=== PATIENT | female | born 1955 | race Caucasian/White ===

== ENCOUNTER 2016-10-01 19:26 | Inpatient (IN) ==
[2016-10-01] MEDS ORDERED: SODIUM CHLORIDE 0.9% 1,000 ML IV STA ×2 (19:57→22:45)
[2016-10-01] MEDS ORDERED: PANTOPRAZOLE 40 MG VIAL IV STA (19:57)
[2016-10-01] MEDS ORDERED: ONDANSETRON 4 MG/2 ML VIAL IV STA (19:57)
[2016-10-01] MEDS ORDERED: PANTOPRAZOLE 40 MG VIAL IV ONE (20:24)
[2016-10-01] MEDS ORDERED: ONDANSETRON 4 MG/2 ML VIAL ONE (20:24)
[2016-10-01 20:27] LABS: Basophils # 0.1 10*3/uL (0.0-0.2); Basophils % 0.6 % (0.0-0.8); Eosinophils # 0.1 10*3/uL (0.0-0.87); Eosinophils % 0.7 % (0.00-10.9); Hematocrit 48.9 VOL% (35.7-47.0); Immature Granulocytes Absolute 0.12 #; Lymphocytes # 2.8 10*3/uL (1.4-4.0); Mean Corpuscular HGB Conc 30.7 GM/DL (32-36); Mean Corpuscular Hemoglobin 28 PG (27-34); Mean Corpuscular Volume 91.6 FL (87-102); Mean Platelet Volume 10.2 FL (9.6-12.0); Monocytes # 0.8 10*3/uL (0.11-0.8); Monocytes % 6.2 % (1.7-12.7); Neutrophils # 8.4 10*3/uL (1.4-7.4); Neutrophils % 68.5 % (38.7-73.9); Platelet Count 294 T/CUMM (130-400); Red Blood Count 5.34 MC/CUMM (3.8-5.5); Red Cell Distribution Width 14.7 % (9.3-17.3); White Blood Count 12.3 T/CUMM (4-12)
[2016-10-01 20:51] LABS: Alanine Aminotransferase 15 U/L (13-56); Albumin 4.2 G/DL (3.4-5.0); Alkaline Phosphatase 66 U/L (45-117); Amylase 40 U/L (25-115); Aspartate Amino Transferase 12 U/L (0-37); Blood Urea Nitrogen 20 MG/DL (7-18); Calcium 9.9 MG/DL (8.5-10.1); Glucose 237 MG/DL (74-106); Magnesium 2.1 MG/DL (1.8-2.4); Osmolality,Calculated 280.1 MOS/KG (273-304); Potassium 4.1 MMOL/L (3.5-5.1); Sodium 135 MMOL/L (136-145); Total Protein 7.9 G/DL (6.4-8.3); Troponin I Only < 0.015 NG/ML (0.00-0.045)
--- NOTE | 2016-10-01 21:04 | EKG Report ---
Stationary ECG Study [facility] ER Test Date: 10/01/2016 9:03:21 PM Pat Name: CAESAR SEYMOUR Department: Room: Gender: F Executive Sales Manager: DAYNE : 1955 Requested by: Fortino Mcintosh Order Number: [id number] Reading MD: RAHDA BRAND Intervals [place] Rate: 106 P: 62 RI: 176 QRS: -9 QRSD: 156 T: 128 QT: 373 QTc: 435 Interpretive Statements SINUS TACHYCARDIA INTRAVENTRICULAR CONDUCTION DELAY Electronically Signed On 10-04-16 10:38:24 CDT by RADHA BRAND [email or web address]
--- NOTE | 2016-10-01 21:05 | CT Report ---
History: Nausea. Weakness. Confusion. Dizziness Date: 10/01/2016 Study: CT head without contrast Comparison exam: No previous similar study for comparison Transaxial CT sections were obtained through the head without IV contrast. This CT exam was performed using one or more the following dose reduction techniques: Automated exposure control, adjustment of the MA and/or KV according to patient size, or use of iterative reconstruction technique. The ventricles are midline in position without evidence of hydrocephalus. There is no mass or parenchymal hemorrhage. There is no gross CT evidence of acute cortical stroke. There is ill-defined low density in the periventricular white matter without mass effect compatible with changes of small vessel disease. There is no extra-axial hematoma. There is no acute abnormality of the calvarium. The partially visualized paranasal sinuses and mastoid air cells are clear. Impression: No acute intracranial process PROCEDURE INTERPRETED AT [facility] DEPARTMENT OF RADIOLOGY Final Report Signed by: Dr. Elif Mcwilliams
--- NOTE | 2016-10-01 21:15 | Emergency Department Note ---
IShira Sierra, am scribing for, and in the presence of, Fortino Price MD 20:19. Dee Gallego Charles R, MD, personally performed the services described in this documentation, ascribed by Alie Silva in my presence, and it is both accurate and complete . Arrival - Arrival Chief Complaint: Weakness Stated Complaint: weakness,dizzy,cant hold head up, possible stroke/ ED Nursing Triage Note: C/O Generalized weakness/dizziness/not feeling well. Onset Saturday. Pt reports that she started a low cab/high protein diet on Saturday and a couple of days later the symptoms started. +nausea/vomiting that started yesterday. Denies urinary symptoms. Pt reports adequate hydration. Daughter reports that she notices that isn't thinking as clear as she normally does. Mode of Arrival: Wheelchair Limitations: No Limitations Source: Patient, Family Time Seen by Provider: 10/01/16 19:43 - History of Present Illness HPI Narrative: Pt is a 61 y/o female that came to the ED with c/o weakness that began 4 days ago. Pt has associated sxs of N/V, decreased appetite, "talking out of her head, " confused, dizziness, and decreased urine output but denies CP, SOB, fever, fullness in abdomen, numbness to face, muscle pain, constipation, or SOB. Pt denies being dizzy when sitting up but is when she tries to walk. Daughter states she had to make pt come to the ED. Daughter reports this is not normal behavior for pt. Daughter states pt started a new low carbohydrate and high protein diet 6 days ago and sxs came on soon after. Pt reports she has been sleeping more than normal and notices something is wrong due to not eating like normal. Daughter states pt is DM and her blood sugar was 192 this morning. Daughter reports pt's blood sugar does run higher when pt is sick. Pt admits she has been taking OTC pain medication such as BC powders, Aleve, and Tylenol for sxs, and daughter states pt does not normally take OTC medications. No other complaints/pain in ED. Onset (ago): day(s) Consistency: constant Severity: moderate Severity scale (1-10): 5 Quality: other Date of Last Menstrual Period: PM Allergies/Adverse Reactions: Allergies Allergy/AdvReac Type Severity Reaction Status Date / Time No Known Allergies Allergy Verified 10/01/16 19:32 Home Medications: Home Medications Medication Instructions Recorded Confirmed Type Unable To Obtain [Unable to Obtain] 10/01/16 10/01/16 History Review of System - Review of System 12 point system: reviewed and no additional remarkable complaints except as stated - Review of System Constitutional: Present: weakness, other (decreased appetite; dizziness). Absent: fever Respiratory: Absent: cough Cardiovascular: Absent: chest pain Gastrointestinal: Present: nausea, vomiting, constipation. Absent: abdominal pain Genitourinary female: Present: other (decreased urine output) Musculoskeletal: Absent: arm pain, leg pain, neck pain Skin: Absent: rash Neurological: Present: confusion, other ("talking out of her head"). Absent: headache, numbness Psychiatric: Absent: anxiety Medical,Surgical,& Family Hx - Medical History Cardio: History of: Hypertension Endocrine: History of: Dyslipidemia - Social History Smoking Status: Never smoker Frequency of Alcohol Use: None Type of Drug Use: None Exam Vital Signs: Vital Signs Temperature 98.5 F 10/01/16 19:30 Pulse Rate 113 H 10/01/16 19:30 Respiratory Rate 18 10/01/16 19:30 Blood Pressure 147/72 10/01/16 19:30 O2 Sat by Pulse Oximetry 98 10/01/16 19:30 - General General appearance: alert, in no apparent distress, lethargic, other (appears sick) - Head Head exam: Present: atraumatic, normocephalic - Eye Eye exam: Present: PERRL, EOMI, other (sunken orbits) - ENT ENT exam: Present: mucous membranes dry. Absent: mucous membranes moist - Neck Neck exam: Present: full ROM. Absent: tenderness - Chest Chest inspection: Present: symmetric chest wall rise. Absent: tenderness - Respiratory Respiratory exam: Present: normal lung sounds bilaterally. Absent: respiratory distress - Cardiovascular Cardiovascular exam: Present: normal rhythm, tachycardia, normal heart sounds - Abdominal Exam Abdominal exam: Present: soft. Absent: tenderness - Extremities Exam Extremities exam: Present: full ROM. Absent: tenderness - Back Exam Back exam: Present: full ROM. Absent: tenderness - Neurological Exam Neurological exam: Present: alert, oriented X3, CN II-XII intact. Absent: motor sensory deficit - Psychiatric Psychiatric exam: Present: normal affect, normal mood - Skin Skin exam: Present: other (poor skin turgor) Course - Reevaluation(s) Reevaluation #1: Patient has minimal improvement. Patient metabolic acidosis is compensated could possibly be from her diet that she started last week and a medication she took from the [facility]. Patient is on a low-carb diet was placed in ketosis and she has not been drinking much fluids. This could explain some of her abnormal lab values and her acidosis. Patient will be hydrated and given bicarb also repeat her ABG in 4 hours and reassess situation also treated for urinary tract infection Time: 22:49 - Consultations Consultation #1: Dr. Leslie Carrion will see and admit patient to Dr. Uziel Avilez Time: 22:40 Results - Labs CBC & BMP: 10/01/16 19:49 10/01/16 19:49 Lab Results: I have reviewed the patients labs Labs: Microbiology 10/01/16 19:49 Nasal Aspirate Influenza Types A,B Antigen (MARIPOSA) - Final Negative for Influenza A Ag Negative for Influenza B Ag Laboratory Tests 10/01/16 10/01/16 19:49 19:49 WBC 12.3 H Hct 48.9 H MCHC 30.7 L Neut # (Auto) 8.4 H Ammonia 22 Laboratory Tests 10/01/16 19:49 Sodium 135 L Carbon Dioxide 9 L Anion Gap 25.1 H BUN 20 H Creatinine 1.30 H Glucose 237 H Globulin 3.7 H Laboratory Tests 10/01/16 21:16 ABG pH 7.143 L* ABG pCO2 20.3 L* ABG pO2 125.0 H ABG HCO3 9.7 L ABG Total CO2 6.3 L ABG Base Excess -21.4 L Laboratory Tests 10/01/16 21:52 Urine Color Yellow Urine Appearance Slightly hazy Urine pH 5.0 Ur Specific [place] 1.021 Urine Protein 30 Urine Glucose (UA) >=500 Urine Ketones 80 Urine Blood Negative Urine Nitrate Negative Urine Bilirubin Negative Urine Urobilinogen < 2.0 H Urine Leukocytes Small H Urine RBC 2 Urine WBC 33 Urine WBC Clumps Few Ur Squamous Epith Cells Occasional Ur Renal Epithelial Cell Occasional Urine Mucus Occasional Laboratory Tests 10/01/16 22:27 b-Hydroxybutyric mmol/L 4.4 H - Diagnostic Findings Procedure: Abdominal x-ray: report reviewed by me (No acute process. Moderate amount of retained stool in the colon. ), Chest x-ray: report reviewed by me ( No acute cardiopulmonary process), CT: report reviewed by me (Head: No acute intracranial process) Critical Care Time Critical Care Time: Yes Total Critical Care Time: 90 Disposition Clinical Impression: Dehydration, UTI (urinary tract infection), Metabolic acidosis, DKA (diabetic ketoacidoses), Renal insufficiency, Sepsis Case discussed with: patient Disposition: Still a Patient Condition: Critical Time of Disposition: 22:48
--- NOTE | 2016-10-01 21:41 | XRay Report ---
History: Abdominal pain Date: 10/01/2016 Study: Chest x-ray AP portable Comparison exam: No previous chest x-ray available The cardiomediastinal silhouette and pulmonary vasculature are unremarkable. Lungs and pleural spaces are clear. Shallow breath. There is no acute pulmonary infiltrate. There is mild thoracic spondylosis. Impression: No acute cardiopulmonary process PROCEDURE INTERPRETED AT [facility] DEPARTMENT OF RADIOLOGY Final Report Signed by: Dr. Elif Mcwilliams
--- NOTE | 2016-10-01 21:43 | XRay Report ---
History: Abdominal pain Date: 10/01/2016 Study: Flat and erect abdomen Comparison exam: No previous abdominal x-ray currently available There is no evidence of pneumoperitoneum. There is no bowel obstruction or gross mass lesion. There is a moderate amount of retained stool in colon. Surgical clips overlie the right upper abdomen. There is mild lumbar spondylosis. Impression: No acute process. Moderate amount of retained stool in the colon PROCEDURE INTERPRETED AT [facility] DEPARTMENT OF RADIOLOGY Final Report Signed by: Dr. Elif Mcwilliams
[2016-10-01 21:54] LABS: ABG Base Excess -21.4 MMOL/L (-2.5-2.5); ABG HCO3 9.7 MMOL/L (20-26); ABG Oxygen Saturation 98.3 % (95-100); ABG TCO2 6.3 MMOL/L (23-27); Allen Test Positive
[2016-10-01 22:02] LABS: ABG PCO2 20.3 MM HG (35-48); ABG PH 7.143 (7.35-7.45)
[2016-10-01] MEDS ORDERED: SODIUM BICARBONATE 50 MEQ/50 ML SYRINGE IV ONE (22:04)
[2016-10-01] MEDS ORDERED: SODIUM BICARBONATE 50 MEQ/50 ML VIAL IV STA (22:09)
[2016-10-01 22:10] LABS: Apearance,Urine Slightly Hazy (Clear); Bilirubin,Urine Negative (Negative); Blood, Urine Negative (Negative); Glucose,Urine (UA) >=500 mg/dL (Negative); Ketones,Urine 80 mg/dL (Negative); Mucus,Urine Occasional /LPF (Occasional); Nitrite,Urine Negative (Negative); Protein,Urine 30 MG/DL; RBC,Urine 2 /HPF (0-4); Renal Epithelial Cells,Urine Occasional /HPF (<1); Squamous Epithelial Cell,Urine Occasional /HPF (0-10); Urine Color Yellow (Yellow); Urine Specific Gravity 1.021 (1.001-1.035); Urine Urobilinogen < 2.0 EU/DL (0.2-1.0); WBC,Urine 33 /HPF (0-6)
[2016-10-01] MEDS ORDERED: cefTRIAXone 1,000 MG in SODIUM CHLORIDE 0.9% 100 ML IV STA (22:31)
[2016-10-01] MEDS ORDERED: cefTRIAXone 1,000 MG VIAL ONE (22:41)
[2016-10-02] MEDS ORDERED: ONDANSETRON 4 MG/2 ML VIAL IV PRN (00:46)
[2016-10-02] MEDS ORDERED: GLUCAGON 1 MG VIAL IM PRN (00:46)
[2016-10-02] MEDS ORDERED: DEXTROSE 50% 25 GM/50 ML VIAL IV PRN (00:46)
[2016-10-02] MEDS ORDERED: LACTULOSE 20 GM/30 ML UDCUP PO PRN (00:46)
[2016-10-02] MEDS ORDERED: ACETAMINOPHEN 325 MG TABLET PO PRN (00:46)
--- NOTE | 2016-10-02 01:07 | Internal Med History&Physical ---
Assessment and Plan (1) Hypotension Status: Acute Current Visit: Yes (2) Diabetes Status: Chronic Current Visit: Yes Qualifiers: Diabetes mellitus type: type 2 Diabetes mellitus complication status: with ketoacidosis Diabetes mellitus complication detail: without coma Diabetes mellitus termite exterminator insulin use: without termite exterminator use Qualified Code(s): E13.10 - Other specified diabetes mellitus with ketoacidosis without coma (3) Dehydration Status: Acute Current Visit: Yes (4) Metabolic acidosis Status: Acute Current Visit: Yes (5) Renal insufficiency Status: Acute Current Visit: Yes (6) UTI (urinary tract infection) Status: Acute Current Visit: Yes Qualifiers: Hematuria presence: without hematuria History of Present Illness Chief complaint: nausea/vomiting; weakness History of present illness: Ms. Galvez is a 61 year old female patient of Dr. Geronimo Avilez with history of DM, HTN, dyslipidemia, who presented to ER with dehydration, hyperglycemia, metabolic acidosis, urinary ketones. She had started a very low carb, high protein diet a few days ago. She had also started taking Contrave to help her lost weight. In ER, fluids were started and bicarb given. She was admitted by ER to the ICU. She was seen in ER and case discussed with patient and family at bedside. She was hypotensive, but blood pressure improved with fluids. Also, she was found to have UTI, and Rocephin was started in ER. She has renal insufficiency , likely acute from dehydration. Home Medications Medication Instructions Recorded Confirmed Type Unable To Obtain [Unable to Obtain] 10/01/16 10/01/16 History Allergies Allergy/AdvReac Type Severity Reaction Status Date / Time No Known Allergies Allergy Verified 10/01/16 19:32 Medical,Surgical,& Family Hx - Medical History Cardio: History of: Hypertension Psychological: History of: Depression Endocrine: History of: Diabetes Mellitus (NIDDM), Dyslipidemia - Surgical History Abdominal Surgeries: Surgical HX of: Cholecystectomy Reproductive Surgeries: Surgical HX of;: Breast Surgery (biopsy), Section Orthopedic Surgeries: Surgical HX of;: Orthopedic Surgery (knee arthroscopy) - Family History Family History: Reports;: Family Cancer (Father- prostate cancer), Family Heart Disease (Mother) - Social History Smoking Status: Never smoker Frequency of Alcohol Use: None Type of Drug Use: None Marital Status: Lives With:: Spouse Functional capacity: independent ambulation - Constitutional Constitutional: Present: fatigue, lethargy, malaise, weakness - Gastrointestinal Gastrointestinal: Present: nausea, vomiting - Neurological Neurological: Present: confusion Exam - Constitutional Vitals: Period Temp Pulse Resp BP Sys/Munoz Pulse Ox Last 24 Hr 98.5 F 113 18 147/72 98 General appearance: no acute distress - Head Head exam: Present: normocephalic - Eye Eye exam: Present: EOMI - Respiratory Respiratory exam: Present: clear to auscultation bilaterally. Absent: rales, rhonchi, wheezes - Cardiovascular Cardiovascular exam: Present: tachycardia - GI/Abdominal GI/Abdominal exam: Present: normal bowel sounds, soft. Absent: tenderness - Extremities Exam Extremities exam: Absent: edema - Neurological Exam Neurological exam: Present: alert (when seen, after a bag of fluid), CN II-XII intact - Psychiatric Psychiatric exam: Present: normal affect - Skin Skin exam: Present: warm, dry Results - Labs CBC & BMP: 10/01/16 19:49 10/01/16 19:49 - EKG EKG shows: tachycardia - Diagnostic Findings Procedure: Abdominal x-ray: report reviewed by me, Chest x-ray: report reviewed by me, CT: report reviewed by me
[2016-10-02 02:46] LABS: ABG Base Excess -15.7 MMOL/L (-2.5-2.5); ABG HCO3 12.8 MMOL/L (20-26); ABG Oxygen Saturation 98.4 % (95-100); ABG PCO2 26.8 MM HG (35-48); ABG PH 7.221 (7.35-7.45); ABG TCO2 9.9 MMOL/L (23-27); Allen Test Positive
[2016-10-02] MEDS: SODIUM CHLORIDE 0.9% 1,000 ML IV SCH ×3 (03:16→22:28)
[2016-10-02] MEDS ORDERED: oxyCODONE/ACETAMINOPHEN 5-325 MG TABLET ONE (04:44)
[2016-10-02 05:02] LABS: Basophils # 0.1 10*3/uL (0.0-0.2); Basophils % 0.7 % (0.0-0.8); Eosinophils # 0.3 10*3/uL (0.0-0.87); Hematocrit 41.6 VOL% (35.7-47.0); Immature Granulocytes % 0.7 %; Immature Granulocytes Absolute 0.07 #; Lymphocytes # 3.6 10*3/uL (1.4-4.0); Lymphocytes % 36.5 % (21.3-54.2); Mean Corpuscular HGB Conc 31.3 GM/DL (32-36); Mean Corpuscular Hemoglobin 28 PG (27-34); Mean Platelet Volume 10.2 FL (9.6-12.0); Monocytes % 9.7 % (1.7-12.7); Neutrophils # 4.9 10*3/uL (1.4-7.4); Neutrophils % 49.4 % (38.7-73.9); Platelet Count 234 T/CUMM (130-400); Red Blood Count 4.57 MC/CUMM (3.8-5.5); Red Cell Distribution Width 14.7 % (9.3-17.3); White Blood Count 9.8 T/CUMM (4-12)
[2016-10-02] MEDS: oxyCODONE/ACETAMINOPHEN 5-325 MG TABLET PO PRN ×2 (06:00→11:50)
[2016-10-02 07:56] LABS: Albumin 3.9 G/DL (3.4-5.0); Bilirubin,Total 0.4 MG/DL (0.2-1.0); Calcium 8.9 MG/DL (8.5-10.1); Magnesium 1.9 MG/DL (1.8-2.4); Osmolality,Calculated 279.5 MOS/KG (273-304); Potassium 3.8 MMOL/L (3.5-5.1); Risk Ratio 3.7; Total Protein 7.1 G/DL (6.4-8.3); VLDL CHOLESTEROL 56.2 MG/DL
--- NOTE | 2016-10-02 08:10 | XRay Report ---
2 view chest. Indication: Shortness of breath. Comparison: October 01, 2016. The heart is normal in size. The pulmonary vasculature is normal. No consolidation, pneumothorax, or pleural effusion. Degenerative changes of the spinal column. Surgical clips in the right upper quadrant. Impression: No acute abnormality. PROCEDURE INTERPRETED AT [facility] DEPARTMENT OF RADIOLOGY Final Report Signed by: Dr. Alisha Carbone
[2016-10-02 08:15] LABS: Apearance,Urine CLEAR (Clear); Bilirubin,Urine Negative (Negative); Blood, Urine Negative (Negative); Glucose,Urine (UA) >=500 mg/dL (Negative); Ketones,Urine 80 mg/dL (Negative); Mucus,Urine Occasional /LPF (Occasional); Nitrite,Urine Negative (Negative); Protein,Urine 30 MG/DL; RBC,Urine 1 /HPF (0-4); Squamous Epithelial Cell,Urine Occasional /HPF (0-10); Urine Color Straw (Yellow); Urine Urobilinogen < 2.0 EU/DL (0.2-1.0); WBC,Urine 35 /HPF (0-6)
--- NOTE | 2016-10-02 08:42 | Family Practice Progress Note ---
Family Practice - PN: Subj Interval history: Patient seen in the emergency room. We are awaiting a room in ICU. At this time she is very alert oriented talks to me very coherently and is stable hemodynamically. Her pH has come up from 7.142 7.22 and PCO2 is backed within normal range. She has been dieting on a high-protein lobe, hydrate not and apparently became dehydrated in addition to the fact that she has got a diabetic history and probably went a little too fast too quickly. With hydration or she has improved. We are going to continue monitoring her electrolytes and blood gas status through the day very closely. She is positive for beta hydroxybutyrate and does have a few ketones in her urine but this should resolve fairly quickly with hydration. She is already taking p.o. fluids at this time. Exam (Progress Note) - Constitutional Vitals: Period Temp Pulse Resp BP Sys/Munoz Pulse Ox Last 24 Hr 98.5 F 95-113 18-20 111-147/57-81 96-99 Exam: Generally very well-developed she is moderately weak and some dehydrated although her mucous membranes are fairly moist at this time. HEENT pupils equal reactive to light extraocular movements are intact neck is supple trachea midline. No respiratory stridor. Oropharynx is normal Cardiovascular rate regular no gallop or rub there is 1/6 systolic ejection murmur Lungs are clear she does not have any shortness of breath or coughing Abdomen soft nondistended nontender no suprapubic tenderness Extremities no clubbing cyanosis or edema she does have some mild decrease in skin turgor. Neurologically fully intact no cranial nerve deficits. No peripheral lateralizing signs or motor sensory deficits. She got equal DTRs bilateral lower extremities in the patellar area Results - Labs CBC & BMP: 10/02/16 04:25 10/02/16 04:25 Assessment and Plan (1) DKA (diabetic ketoacidoses) Status: Acute Assessment and plan: 10/02/2016: We are hydrating her. Monitoring blood sugars and will put on sliding scale. Hold metformin for now and place on 2000-calorie ADA Current Visit: Yes (2) Dehydration Status: Acute Assessment and plan: 10/02/2016: His current to getting fluids at this time Current Visit: Yes (3) Metabolic acidosis Status: Acute Assessment and plan: 10/02/2016: Her pH is slowly improving. We will monitor this very closely. Watch for clearing ketones in urine Current Visit: Yes
[2016-10-02] MEDS ORDERED: ENOXAPARIN 40 MG/0.4 ML SYRINGE ONE (08:51)
[2016-10-02] MEDS ORDERED: PANTOPRAZOLE 40 MG VIAL IV ONE (08:51)
[2016-10-02] MEDS: ENOXAPARIN 40 MG/0.4 ML SYRINGE SUBCUT SCH (08:55)
[2016-10-02] MEDS: PANTOPRAZOLE 40 MG VIAL IV SCH (08:58)
[2016-10-02] MEDS: DOCUSATE SODIUM 100 MG CAPSULE PO SCH ×2 (10:02→21:11)
[2016-10-02] MEDS: INSULIN REGULAR 100 UNIT/ML SUBCUT SCH ×4 (12:03→21:26)
[2016-10-02 16:28] LABS: Apearance,Urine CLEAR (Clear); Bilirubin,Urine Negative (Negative); Blood, Urine Small mg/dL (Negative); Glucose,Urine (UA) >=500 mg/dL (Negative); Ketones,Urine 80 mg/dL (Negative); Mucus,Urine Occasional /LPF (Occasional); Nitrite,Urine Negative (Negative); Protein,Urine 30 MG/DL; RBC,Urine 2 /HPF (0-4); Urine Color Straw (Yellow); Urine Specific Gravity 1.021 (1.001-1.035); Urine Urobilinogen < 2.0 EU/DL (0.2-1.0); WBC,Urine 10 /HPF (0-6)
[2016-10-02 17:36] LABS: ABG Base Excess -10.2 MMOL/L (-2.5-2.5); ABG HCO3 14.5 MMOL/L (20-26); ABG Oxygen Saturation 96.6 % (95-100); ABG PCO2 28.8 MM HG (35-48); ABG PH 7.319 (7.35-7.45); ABG PO2 83.2 MM HG (80-95); ABG TCO2 15.4 MMOL/L (23-27); Allen Test Positive; Pt O2 Delivery Device Room Air
[2016-10-02] MEDS: cefTRIAXone 1,000 MG in SODIUM CHLORIDE 0.9% 100 ML IV SCH (21:11)
[2016-10-03] MEDS: oxyCODONE/ACETAMINOPHEN 5-325 MG TABLET PO PRN ×2 (03:04→08:59)
[2016-10-03] MEDS: SODIUM CHLORIDE 0.9% 1,000 ML IV SCH ×5 (06:22→22:17)
[2016-10-03] MEDS ORDERED: MAGNESIUM HYDROXIDE SUSP 30 ML UDCUP PO PRN (08:57)
[2016-10-03] MEDS: DOCUSATE SODIUM 100 MG CAPSULE PO SCH ×2 (08:59→20:59)
[2016-10-03] MEDS: ESCITALOPRAM 10 MG TABLET PO SCH (08:59)
[2016-10-03] MEDS: LOSARTAN 50 MG TABLET PO SCH (08:59)
[2016-10-03] MEDS: CALCIUM (CARBONATE)/VITAMIN D 600 MG-400 UNIT TABLET PO SCH (08:59)
[2016-10-03] MEDS: ENOXAPARIN 40 MG/0.4 ML SYRINGE SUBCUT SCH (09:00)
[2016-10-03] MEDS: PANTOPRAZOLE 40 MG VIAL IV SCH (09:00)
[2016-10-03 09:30] LABS: Albumin 3.3 G/DL (3.4-5.0); Bilirubin,Total 0.5 MG/DL (0.2-1.0); Calcium 8.2 MG/DL (8.5-10.1); Osmolality,Calculated 285.1 MOS/KG (273-304); Total Protein 6.3 G/DL (6.4-8.3)
[2016-10-03] MEDS: INSULIN REGULAR 100 UNIT/ML SUBCUT SCH ×4 (10:11→20:55)
[2016-10-03] MEDS: metFORMIN 500 MG TABLET PO SCH ×2 (11:30→17:23)
[2016-10-03] MEDS: INSULIN GLARGINE 100 UNIT/ML SUBCUT SCH (11:30)
--- NOTE | 2016-10-03 12:36 | Physician Query Form ---
CLICK EDIT DOCUMENT TO SELECT QUERY ANSWER --> OK --> SIGN Luly Theodore RN Clinical Distribution Clerk W) [phone] (f) [phone] [email or web address] PROVIDERS: Make your selection(s) from the choices in EACH section by typing an "x" and enter comments in the comment section. Please use your independent medical judgment in providing your response. This request does not imply that any particular answer is desired or expected. CLINICAL INDICATORS: (Providers should not edit this section) Based on documentation of 'acute renal insufficiency", creatinine on admission of 1.30 with a GFR of 53 and decreased to 0.90. Pt. treated with IV fluids of Normal Saline. Clarify which of the following most accurately represents the patient's renal status: ( x) Acute kidney injury (non-traumatic) ( ) Acute renal failure ( ) Acute renal failure with underlying Chronic Kidney Disease (CKD) - please provide stage below ( ) CKD - please provide stage below ( ) Other, please specify: ( ) Clinically unable to determine Chronic Kidney Disease Stages Source: National Kidney Disease Foundation ( ) Stage I (eGFR > or = 90) ( ) Stage II (eGFR 60 - 89) ( x) Stage III (eGFR 30 - 59) ( ) Stage IV (eGFR 15 - 29) ( ) Stage V (eGFR < 15 or dialysis) COMMENTS: Use of terms such as suspected, likely, or probable (associated with a specific diagnosis that is being evaluated, monitored, or treated as if it exists) are acceptable and can be restated in the discharge summary if not ruled out. MTDD
[2016-10-03] MEDS: cefTRIAXone 1,000 MG in SODIUM CHLORIDE 0.9% 100 ML IV SCH (21:01)
--- NOTE | 2016-10-03 22:20 | Family Practice Progress Note ---
Family Practice - PN: Subj Interval history: Patient seen today. She is doing significantly better however she does feel quite weak. We checked her lab again and is revealing that she has a elevated glucose of around 180-200. Did an A1c on her and this was about 10.2. She is still drinking a lot of fluids seem to be somewhat at least subjectively dehydrated. She does admit that she is voiding quite a bit probably due to the previous SGL T2 inhibitor given her as well as the fact that she is has renal threshold for glucose causing an osmotic diuresis. She is very oriented and eating well. She has had been passing gas. No acute distress is able to get up and go to the bathroom. My goal today is to increase IV fluids a little bit. We are talking about going home but I would like to go ahead and get diabetic education to see her to evaluate the possible direction with regards to her glucose control considering that her A1c is at high. I do believe she needs along acting insulin and we will probably start Lantus. In addition I did increase her sliding scale to high. Will continue metformin but stopped Nesina and the Invokana. Exam (Progress Note) - Constitutional Vitals: Period Temp Pulse Resp BP Sys/Munoz Pulse Ox Last 24 Hr 97.7 F-98.8 F 77-85 18-20 102-124/50-69 94-99 Exam: Generally very well-developed she is still moderately weak and although her mucous membranes are fairly moist, a little dehydrated at this time. HEENT pupils equal reactive to light extraocular movements are intact neck is supple trachea midline. No respiratory stridor. Oropharynx is normal Cardiovascular rate regular no gallop or rub there is 1/6 systolic ejection murmur Lungs are clear she does not have any shortness of breath or coughing Abdomen soft nondistended nontender no suprapubic tenderness Extremities no clubbing cyanosis or edema she does continue to have some mild decrease in skin turgor. Neurologically fully intact no cranial nerve deficits. No peripheral lateralizing signs or motor sensory deficits. She got equal DTRs bilateral lower extremities in the patellar area Results - Labs CBC & BMP: 10/02/16 04:25 10/03/16 08:27 Assessment and Plan (1) DKA (diabetic ketoacidoses) Status: Acute Assessment and plan: 10/02/2016: We are hydrating her. Monitoring blood sugars and will put on sliding scale. Hold metformin for now and place on 2000-calorie ADA 10/03/2016. We are continuing to hydrate her. She did spill some more glucose in the urine and I am going to stop her Invokana. Will increase her IV fluids. We did get diabetic education to see your and will adjust medications accordingly. Current Visit: Yes (2) Dehydration Status: Acute Assessment and plan: 10/02/2016: His current to getting fluids at this time Current Visit: Yes (3) Metabolic acidosis Status: Acute Assessment and plan: 10/02/2016: Her pH is slowly improving. We will monitor this very closely. Watch for clearing ketones in urine 10/03/2016 this is pretty much resolved at this time Current Visit: Yes Quality Measures - Stroke Symptom Onset Unknown: No
[2016-10-04] MEDS: SODIUM CHLORIDE 0.9% 1,000 ML IV SCH ×2 (04:20→05:25)
[2016-10-04 06:54] LABS: Bilirubin,Total 0.5 MG/DL (0.2-1.0); Calcium 8.1 MG/DL (8.5-10.1); Potassium 3.2 MMOL/L (3.5-5.1); Total Protein 5.6 G/DL (6.4-8.3)
[2016-10-04] MEDS ORDERED: POTASSIUM CHLORIDE 20 MEQ TABLET PO STA (08:16)
[2016-10-04] MEDS: ENOXAPARIN 40 MG/0.4 ML SYRINGE SUBCUT SCH (08:58)
[2016-10-04] MEDS: PANTOPRAZOLE 40 MG VIAL IV SCH (08:59)
[2016-10-04] MEDS: CALCIUM (CARBONATE)/VITAMIN D 600 MG-400 UNIT TABLET PO SCH (08:59)
[2016-10-04] MEDS: INSULIN GLARGINE 100 UNIT/ML SUBCUT SCH (09:00)
[2016-10-04] MEDS: ESCITALOPRAM 10 MG TABLET PO SCH (09:00)
[2016-10-04] MEDS: metFORMIN 500 MG TABLET PO SCH (09:00)
[2016-10-04] MEDS ORDERED: ATORVASTATIN 20 MG TABLET PO SCH (09:00)
[2016-10-04] MEDS: INSULIN REGULAR 100 UNIT/ML SUBCUT SCH (09:02)
--- NOTE | 2016-10-04 09:20 | Discharge Summary ---
Hospital Course - Hospital Course Hospital Course: Patient came in to the hospital with ketoacidosis which was from dehydration, diabetic as well as starvation. All of these were influencing her ketosis state and we had to resolve this in a multiple fashion by getting her sugars under control, fluids as well as starting her back to eating. This all was initiated after she went on a diet that included only a few carbohydrates and she at some point got a little nauseated and stop drinking fluids. Nonetheless, we were able to hold some of the medicines that were perhaps causing this. We started on a sliding scale insulin and got her out of the acute state of ketoacidosis. We restarted metformin and initiated long-acting insulin. She is was eating well voiding well her fluid status and dehydration status improved and we discharged her home after she felt much better. She was able to ambulate she does have good family support at home. I do want to see her back next Saturday. Her home medicines are going to include Christy by 10 units, metformin 500 mg p.o. twice daily, glyburide 2 mg daily a.m. Patient states she feels much better at this time and she is going to be very careful with her diet regimen as well as taking her medications appropriately. Diagnosis - Discharge Diagnosis (1) DKA (diabetic ketoacidoses) Status: Acute (2) Dehydration Status: Acute (3) Metabolic acidosis Status: Acute Specialty Discharge - Follow Up or Referrals Follow up with: Geronimo Avilez DO [Physician] - 2 Weeks (10/18/2016 10:30) Discharge Plan - Discharge Data Disposition: Disch To Home/Self Care Condition at Discharge: Stable Discharge Diet: advance to your usual diet, diabetic diet Activity: resume usual activities as tolerated Hygiene: no restrictions Weight Bearing at Discharge: full weight bearing Driving: no restrictions Contact your physician if you experience:: fever over 101, Nausea/Vomiting - Discharge Medications New Insulin Degludec [Tresiba Flextouch U-200] 10 unit SQ DAILY #1 packet Sulfameth/Trimeth 800-160 Tab [Bactrim DS Tab] 1 tablet PO BID #6 tablet metFORMIN [Glucophage] 500 mg PO BID W/MEALS tablet Continue Naltrexone HCl/Bupropion HCl [Contrave ER 8-90 mg Tablet] 1 each PO BEDTIME Metformin HCl 500 mg PO BID W/MEALS Losartan Potassium 50 mg PO DAILY Atorvastatin [Lipitor] 20 mg PO QOTHER DAY Calcium Carbonate/Vitamin D3 [Caltrate 600 Plus D3 Tablet] 1 each PO DAILY Vit B Comp/C/FA/Iron/Vit E [Vitamin B Complex Tablet] 1 each PO DAILY Cholecalciferol (Vitamin D3) [Vitamin D3] 2,000 unit PO DAILY Escitalopram [Lexapro] 10 mg PO DAILY Coenzyme Q10 200 mg PO DAILY Discontinued Canagliflozin [Invokana] 200 mg PO DAILY - Follow Up or Referral Follow Up: Geronimo Avilez DO [Physician] - 2 Weeks (10/18/2016 10:30) - Forms/Instructions Instructions: Dehydration (GEN), Urinary Tract Infection in Women (GEN), Metabolic Acidosis (GEN) Exam - Constitutional Vitals: Period Temp Pulse Resp BP Sys/Munoz Pulse Ox Last 24 Hr 97.5 F-98.1 F 70-85 16-19 105-137/55-70 94-100 Discharge Results Procedures and tests throughout hospitalization: Pending Orders 10/02/16 Urine Culture Routine Urine Culture Routine Labs on day of discharge: Labs from last 24 hours 10/04/16 10/04/16 10/03/16 07:08 06:18 19:23 Sodium 143 Potassium 3.2 L Chloride 114 H Carbon Dioxide 21 Anion Gap 11.2 BUN 6 L Creatinine 0.60 GFR Calculation 118 BUN/Creatinine Ratio 10.00 Glucose 128 H POC Glucose 136 H 211 H Hemoglobin A1c Calculated Osmolality 284.0 Calcium 8.1 L Total Bilirubin 0.50 AST 16 ALT 14 Alkaline Phosphatase 42 L Total Protein 5.6 L Albumin 3.0 L Globulin 2.6 Albumin/Globulin Ratio 1.1 10/03/16 10/03/16 10/03/16 15:30 11:42 08:27 Sodium 142 Potassium 4.0 Chloride 112 H Carbon Dioxide 20 L Anion Gap 14.0 BUN 9 Creatinine 0.90 GFR Calculation 83 BUN/Creatinine Ratio 10.00 Glucose 173 H POC Glucose 204 H 173 H Hemoglobin A1c Calculated Osmolality 285.1 Calcium 8.2 L Total Bilirubin 0.50 AST 9 ALT 12 L Alkaline Phosphatase 49 Total Protein 6.3 L Albumin 3.3 L Globulin 3.0 Albumin/Globulin Ratio 1.1 10/03/16 08:23 Sodium Potassium Chloride Carbon Dioxide Anion Gap BUN Creatinine GFR Calculation BUN/Creatinine Ratio Glucose POC Glucose Hemoglobin A1c 10.3 H Calculated Osmolality Calcium Total Bilirubin AST ALT Alkaline Phosphatase Total Protein Albumin Globulin Albumin/Globulin Ratio Preliminary micro results at discharge 10/02/16 Unknown Urine Culture - Preliminary Urine,Voided Gram Positive Cocci 10/02/16 Unknown Urine Culture - Preliminary Urine,Voided Gram Positive Cocci DS: Provider Date of admission: 10/01/16 22:50 Primary care physician: . No PCP Attending physician on admission: Geronimo Avilez DO Consults: 10/02/16 00:46 Consult to Case Mgmt/Social Srvs [CONS] Routine Reason for Case Mgmt/Social Srvs: Discharge Planning Consult to [facility], Educator [CONS] Routine Reason for General Freight Agent: Diabetes Education 10/02/16 07:42 Consult to Pharmacy [CONS] Routine Reason for Pharmacy Consult: Adjust Meds Renal Funct Discharging clinician: Geronimo Avilez DO
[2016-10-04] MEDS: LOSARTAN 50 MG TABLET PO SCH (09:43)
[2016-10-04 13:51] VITALS: BP 126/75
== END 2016-10-04 11:23 | disposition home or self-care (01) | DRG 638 ==
LOC: N.ED 19:26 → N.5E 10-02 11:35 → N.ICU 10-02 11:35 → N.EDINP 10-02 11:40 → N.ICU 10-02 11:41 → N.5E 10-02 20:41
PROVIDERS: ADMIT Family Medicine; ATTEND Family Medicine